=== PATIENT | female | born 1990 ===

== ENCOUNTER 2024-01-21 22:34 | Emergency (ER) | payer OTHER ==
[~2024-01-21 22:34] MED LIST: SODIUM CHLORIDE 0.9% 1,000 ML BAG ONE
[2024-01-22] MEDS ORDERED: MORPHINE SULFATE 4 MG/ML SYRINGE ONE (01:43)
[2024-01-22] MEDS ORDERED: ONDANSETRON 4 MG/2 ML VIAL ONE (01:43)
--- NOTE | 2024-02-20 10:41 | US ---
Patient: Johnna Rolon Ordering Physician: Unknown, Unknown ID: [id number] Phone, Pager: Phone : N/A Pager: N/A : 1990 Age/Gender: 33Y, F Primary Location: N/A Procedure: US Transvaginal St [facility] Date: 01/22/2024 1:51:00 AM EXAMINATION TYPE: US transvaginal DATE OF EXAM: 01/23/2024 COMPARISON: NONE CLINICAL INDICATION: Unknown, old with history of ; TECHNIQUE: . Transabdominal sonographic images of the pelvis were acquired. Transvaginal sonographi c images were medically necessary to better assess the following anatomy: Date of LMP: Patient History: Vaginal Bleeding Uterus: WNL Endo: 0.4 cm Right Ovary: WNL as seen - patient ended exam Left Ovary: WNL as seen - 1.1 cm dominant follicle Unable to obtain ovarian doppler due to patients request to end exam. IMPRESSION: 1. Dominant left ovarian follicle.
== END 2024-01-22 03:14 | disposition home or self-care (01) ==
LOC: EC 22:34
CPT/HCPCS: 76830; 93976; 96361; 96374; 96375; 99284